=== PATIENT | male | born 1935 | race Caucasian/White ===

== ENCOUNTER 2017-10-26 15:10 | Emergency (ER) | payer MEDICARE ==
[2017-10-26 15:17] VITALS: BP 135/74
--- NOTE | 2017-10-26 16:33 | RAD ---
HISTORY: Cough, shortness of breath, fatigue COMPARISONS: None VIEWS: 4: Frontal dual-energy and lateral views of the chest. FINDINGS: CARDIOMEDIASTINAL SILHOUETTE: The cardiomediastinal silhouette is normal. JENS: The jens are normal. PLEURA: The costophrenic angles are sharp. No pleural abnormalities are noted. LUNG PARENCHYMA: The lungs are clear COPD. ABDOMEN: The upper abdomen is clear. There is no subphrenic gas. BONES AND SOFT TISSUES: Degenerative changes are noted along the spine. OTHER: A left-sided pacemaker is noted. IMPRESSION: HYPERINFLATION, CONSISTENT WITH COPD. NO ACTIVE CARDIOPULMONARY DISEASE.
--- NOTE | 2017-10-26 16:57 | UC ---
Bindu Grimaldo Emily, scribed for Devon Rahman MD on 10/26/17 at 1609 . Respiratory Complaint HPI - HPI Summary HPI Summary: This patient is an 82 year old M presenting to urgent care accompanied by with a chief complaint of productive cough with white-yellow sputum that began 2 weeks ago. Pt was referred to urgent care by PCP with a request for a CXR. The patient rates the pain 0/10 in severity. Symptoms aggravated by nothing. Symptoms alleviated by nothing. Patient reports fatigue, sore throat, and SOB. Patient denies abd pain, nausea, and vomiting. Medications reviewed. Allergies reviewed. - History of Current Complaint Chief Complaint: UCRespiratory Stated Complaint: RESP COMPLAINT Time Seen by Provider: 10/26/17 15:59 Hx Obtained From: Patient Onset/Duration: Sudden Onset, Lasting Weeks, Still Present Timing: Constant Severity Initially: Mild Severity Currently: Mild Pain Intensity: 0 Pain Scale Used: 0-10 Numeric Character: Cough: Productive, Sputum Description: - Yellow-white Aggravating Factors: Nothing Alleviating Factors: Nothing - Allergies/Home Medications Allergies/Adverse Reactions: Allergies Allergy/AdvReac Type Severity Reaction Status Date / Time celecoxib [From Celebrex] Allergy Swelling Verified 10/26/17 15:18 Of Face,Lips,& Throat Home Medications: Home Medications Allopurinol 100 mg PO 10/26/17 [History] Finasteride [Proscar] 5 mg PO 10/26/17 [History] Multivitamin [Multivitamins] 1 cap PO 10/26/17 [History] Pravastatin (NF) [Pravachol (NF)] 20 mg PO 1700 10/26/17 [History Confirmed ] Rivaroxaban TAB(*) [Xarelto 20 mg] 20 mg PO DAILY 10/26/17 [History Confirmed ] Tamsulosin HCl 0.4 mg PO 10/26/17 [History] Valsartan TAB* [Diovan TAB*] 160 mg PO DAILY 10/26/17 [History Confirmed ] guaiFENesin [Mucinex] 1,200 mg PO 10/26/17 [History] levETIRAcetam [Levetiracetam ER] 500 mg PO 10/26/17 [History] PMH/Surg Hx/FS Hx/Imm Hx Previously Healthy: No Endocrine History: Other Other Endocrine History: Negative diabetes Cardiovascular History: Atrial Fibrillation - Surgical History Surgical History: Yes Surgery Procedure, Year, and Place: BILAT KNEES, PACER - Social History Occupation: Retired Lives: With Family Alcohol Use: Daily Substance Use Type: None Smoking Status (MU): Never Smoked Tobacco Review of Systems Constitutional: Fatigue ENT: Sore Throat Respiratory: Shortness Of Breath, Cough Gastrointestinal: Other - Negative abd pain, nausea, and vomiting All Other Systems Reviewed And Are Negative: Yes Physical Exam - Summary Physical Exam Summary: General: mildly ill appearing, no pain distress Skin: warm, color reflects adequate perfusion, dry Head: normal Eyes: EOMI, EVON ENT: normal Neck: supple, nontender Respiratory: Occasional rhonchi in the lung colunga. Breath sounds present Cardiovascular: RRR Abdomen: soft, nontender Bowel: present Musculoskeletal: Bilateral trace pedal edema. Calves are nontender. strength/ ROM intact Neurological: sensory/motor intact, A&O x3 Psychological: affect/mood appropriate Triage Information Reviewed: Yes Vital Signs: Initial Vital Signs Temp 96.5 F 10/26/17 15:13 Pulse 94 10/26/17 15:13 Resp 18 10/26/17 15:13 BP 135/74 10/26/17 15:13 Pulse Ox 98 10/26/17 15:13 Vital Signs Reviewed: Yes UC Diagnostic Evaluation - Laboratory O2 Sat by Pulse Oximetry: 98 - Radiology Radiology Interpretation Completed By: Radiologist - CXR reveals, per radiologist, hyperinflation, consistent with COPD. No active cardiopulmonary disease. Physician has reviewed this radiology report. Re-Evaluation - Re-Evaluation First Eval Re-Evaluation Time: 16:45 Change: Unchanged Comment: Discussed results with pt Respiratory Course/Dx - Course Course Of Treatment: DISCUSSED RESULTS OF CXR WITH PATIENT AND FAMILY. THEY DO NOT WANT TO GO TO THE EMERGENCY DEPARTMENT FOR FURTHER EVALUATION AT THIS TIME. THE PLAN IS TO TREAT WITH AZITHRO FOR BRONCHITIS, OBTAIN LAB WORK WITH CLOSE F /U WITH PMD. THEY ALSO AGREE TO GO TO THE EMERGENCY DEPARTMENT FOR ANY WORSENING OF VAN'S CONDITION. - Differential Dx/Diagnosis Provider Diagnoses: SHORTNESS OF BREATH. BRONCHITIS Discharge - Sign-Out/Discharge Documenting (check all that apply): Discharge/Admit/Transfer - Discharge Plan Condition: Stable Disposition: HOME Prescriptions: Azithromyxin KEOYN (NF) [Z-Keyon (Zithromax) 250 mg tabs #6] 2 tab PO .TODAY, THEN 1 DAILY #6 tab Patient Education Materials: Acute Bronchitis (ED), Shortness of Breath (ED) Forms: *Work Release Referrals: Johnna Sanchez MD [Primary Care Provider] - Additional Instructions: FOLLOW UP WITH YOUR DOCTOR. CALL TOMORROW FOR FOLLOW UP. YOUR LAB BLOOD WORK RESULTS ARE PENDING. GO TO THE EMERGENCY DEPARTMENT FOR ANY WORSENING OF YOUR CONDITION; SHORTNESS OF BREATH, CHEST PAIN, YOU FEEL ILL OR QUESTIONS OR CONCERNS. - Billing Disposition and Condition Condition: STABLE Disposition: HOME The documentation as recorded by the Bindu carmen Emily accurately reflects the service I personally performed and the decisions made by me, Devon Rahman MD.
[2017-10-27 11:41] LABS: Hematocrit 45 % (42-52); Hemoglobin 14.6 g/dl (14.0-18.0); Mean Corpuscular HGB Conc 32 g/dl (31-36); Mean Corpuscular Hemoglobin 28 pg (27-31); Mean Corpuscular Volume 86 fL (80-94); Mean Platelet Volume 10.5 um3 (7.4-10.4); Platelet Count 210 10^3/ul (150-450); Red Blood Count 5.25 10^6/ul (4.0-5.4); Red Cell Distribution Width 16 % (10.5-15); White Blood Count 9.4 10^3/ul (3.5-10.8)
[2017-10-27 11:43] LABS: ABS Basophils 0.1 10^3/ul (0-0.2); ABS Eosinophils 0.3 10^3/ul (0-0.6); ABS Lymphocytes 2.2 10^3/ul (1.0-4.8); ABS Monocytes 1.1 10^3/ul (0-0.8); ABS Neutrophils 5.7 10^3/ul (1.5-7.7); ABS Nucleated RBC 0 10^3/ul; Eosinophil % 3.2 % (0-6); Lymphocyte % 23.6 % (25-47); Nucleated Red Blood Cells % 0.1
--- NOTE | 2017-10-28 08:01 | UC ---
- Progress Note Progress Note: PLEASE CALL PATIENT. ADVISE THAT LABS CAME BACK WITH SLIGHTLY ELEVATED CRP AND BNP. NO CHANGE IN MANAGEMENT. ENSURE THAT HE HAS FOLLOW UP WITH HIS PCP AND THAT HE IS FEELING BETTER. - CATRACHITA MCKEON MD. Re-Evaluation - Re-Evaluation First Eval Re-Evaluation Time: 16:45 Change: Unchanged Comment: Discussed results with pt Discharge - Sign-Out/Discharge Documenting (check all that apply): Post-Discharge Follow Up - Discharge Plan Condition: Stable Disposition: HOME Prescriptions: Azithromyxin KEYON (NF) [Z-Keyon (Zithromax) 250 mg tabs #6] 2 tab PO .TODAY, THEN 1 DAILY #6 tab Patient Education Materials: Acute Bronchitis (ED), Shortness of Breath (ED) Forms: *Work Release Referrals: Johnna Sanchez MD [Primary Care Provider] - Additional Instructions: FOLLOW UP WITH YOUR DOCTOR. CALL TOMORROW FOR FOLLOW UP. YOUR LAB BLOOD WORK RESULTS ARE PENDING. GO TO THE EMERGENCY DEPARTMENT FOR ANY WORSENING OF YOUR CONDITION; SHORTNESS OF BREATH, CHEST PAIN, YOU FEEL ILL OR QUESTIONS OR CONCERNS. - Billing Disposition and Condition Condition: STABLE Disposition: HOME
== END 2017-10-26 17:20 | disposition home or self-care (01) ==
LOC: UCEAST 15:10
DX: J40 Bronchitis, not specified as acute or chronic (principal); I48.91 Unspecified atrial fibrillation; Z79.01 Long term (current) use of anticoagulants; Z95.0 Presence of cardiac pacemaker
CPT/HCPCS: 36415; 71046; 83880; 85025; 86140; 99212; G0463